=== PATIENT | male | born 1990 | race Caucasian/White ===

== ENCOUNTER 2019-05-26 16:55 | Emergency (ER) | payer SELFPAY ==
[~2019-05-26] VITALS: Ht 182.9 cm; Wt 86.2 kg
[2019-05-26 17:19] VITALS: BP 125/75
[2019-05-26] MEDS ORDERED: cefTRIAXone SODIUM 250 MG VL IM ONE (18:00)
== END 2019-05-26 18:57 | disposition home or self-care (01) ==
LOC: ER 16:55
DX: Z20.9 Contact with and (suspected) exposure to unspecified communicable disease (principal)
CPT/HCPCS: 96372